=== PATIENT | male | born 1995 | race Caucasian/White ===

== ENCOUNTER 2021-01-29 21:30 | Emergency (ER) | payer OTHER ==
[~2021-01-29] VITALS: Ht 170.2 cm; Wt 92.5 kg
[2021-01-29 21:38] VITALS: BP 150/74
--- NOTE | 2021-01-29 21:38 | NUR ---
TO BED AMBULATORY
--- NOTE | 2021-01-29 21:45 | NUR ---
PATIENT 25 Y/O MALE BIB SELF FOR C/O ALLERGIC REACTION X 2 HOURS AGO. PATIENT A&O X 4. PATIENT PRESETNS CALM WITH NO SOB OR WHEEZING NOTED. PATIENT DENIES DIFFICULTY SWALLOWING. PATIENT NOTED WITH HIVES ON A/P TORSE AND BUE AND BLE. PATIENT STATES TOOK LORATADINE 10MG X 1 HOUR AGO. PATIENT DENIES PAIN AND STATES, "IT'S JUST ITCHY." PATIENT DENIES N/V. PATIENT VSS. MEDHX: ASTHMA NKA
--- NOTE | 2021-01-29 21:52 | NUR ---
Dr. Leslie examining patient.
[2021-01-29] MEDS ORDERED: DEXAMETHASONE 10 MG/ML VIAL IM ONE (21:55)
[2021-01-29] MEDS ORDERED: diphenhydrAMINE 50 MG CAP PO ONE (21:55)
--- NOTE | 2021-01-29 22:02 | NUR ---
Patient appears to be resting comfortably in bed. Vital Signs within normal limits. Respirations even and unlabored. No wheezing or SOB noted. Patient denies difficulty swallowing at this time.
--- NOTE | 2021-01-29 23:15 | NUR ---
Patient states, "The itching feels so much better. The medication helped a lot. " Hives still noted on patient BUE and A/P torso. Patient denies pain at this time.
[2021-01-29 23:22] VITALS: BP 152/82
--- NOTE | 2021-01-29 23:22 | NUR ---
Patient is currently ambulatory with steady gait, able to walk unassisted. Positive gag reflex. Alert and oriented. Is not driving self for discharge out of facility. [facility] discharged with v/s stable. Written and verbal after care instructions given and explained. Patient verbalized understanding. All questions addressed prior to discharge. Advised to follow up with PMD.
== END 2021-01-29 23:22 | disposition home or self-care (01) ==
LOC: MED 21:30
DX: L50.0 Allergic urticaria (principal)
CPT/HCPCS: 96372; 99283; J1100; Q0163